=== PATIENT | male | born 1985 ===

== ENCOUNTER 2018-03-28 00:28 | Emergency (ER) | payer SELFPAY ==
[2018-03-28 02:03] VITALS: BP 134/79
[2018-03-28] MEDS ORDERED: MOTRIN PO ONE (02:04)
--- NOTE | 2018-03-28 02:40 | XRay Report ---
FINAL REPORT EXAM: XR HAND 2V LT HISTORY: Left middle finger pain TECHNIQUE: Two views of the left hand: AP and lateral projections. PRIORS: None. FINDINGS: There is no radiographic evidence of acute fracture or dislocation. There is soft tissue swelling about the distal phalanx middle finger at the dorsal margin near the nail bed. No subjacent osseous erosive changes are identified. Probable misregistration artifact is noted about the radial margin of the proximal phalanx middle finger. No radiopaque foreign body. IMPRESSION: Soft tissue swelling of the middle finger distal phalanx, no acute osseous abnormality identified.
[2018-03-28] MEDS ORDERED: TYLENOL PO ONE (04:46)
[2018-03-28] MEDS ORDERED: TYLENOL ONE (04:49)
--- NOTE | 2018-03-28 06:13 | Emergency Department Report ---
Upper Extremity - HPI Chief Complaint: Extremity Injury, Lower Stated Complaint: LT HAND INDEX FINGER SWELLING WITH PAIN Time Seen by Provider: 03/28/18 05:25 Upper Extremity: Left Middle Finger Occurred When: 3 Days Mechanism: Crush Severity: moderate Symptoms: Yes Pain with Movement, Yes Limited Range of Movement, Yes Swelling, Yes Bruising/Ecchymosis, No Deformity, No Numbness, No Weakness, No Laceration or Abrasion Other History: Subungual hematoma ED Review of Systems ROS: Stated complaint: LT HAND INDEX FINGER SWELLING WITH PAIN Other details as noted in HPI Constitutional: denies: chills, fever Eyes: denies: eye pain, eye discharge, vision change ENT: denies: ear pain, throat pain Respiratory: denies: cough, shortness of breath, wheezing Cardiovascular: denies: chest pain, palpitations Endocrine: no symptoms reported Gastrointestinal: denies: abdominal pain, nausea, diarrhea Genitourinary: denies: urgency, dysuria Musculoskeletal: myalgia (left subungual hematoma ). denies: back pain, joint swelling, arthralgia Skin: denies: rash, lesions Neurological: denies: headache, weakness, paresthesias Psychiatric: denies: anxiety, depression Hematological/Lymphatic: denies: easy bleeding, easy bruising ED Past Medical Hx - Past Medical History Hx Arthritis: Yes - Surgical History Past Surgical History?: No - Social History Smoking Status: Current Every Day Smoker Substance Use Type: None - Medications Home Medications: Home Medications Medication Instructions Recorded Confirmed Last Taken Type Cephalexin [Keflex] 500 mg PO TID #30 capsule 03/28/18 Unknown Rx traMADol [Ultram] 50 mg PO Q6HR PRN #15 tablet 03/28/18 Unknown Rx Upper Extremity Exam - Exam General: Vital signs noted. No distress. Alert and acting appropriately. Head and Torso: No HEENT Abnormality, No Neck Tenderness, No Chest/Lungs Abnormality, No Abdominal Tenderness, No Back Tenderness Shoulder Exam: Yes Normal Range of Motion in Shoulder, No Shoulder Tenderness, No Clavicle Tenderness, No Shoulder Deformity, No AC Joint Tenderness Arm Exam: No Arm/Humerus Tenderness, No Arm Deformity Elbow: No Elbow Tenderness, No Normal Range of Motion in Elbow, No Elbow Deformity Forearm: No Forearm Tenderness, No Forearm Deformity, No Pain with Pronation, No Pain with Supination Wrist: No Wrist Tenderness, No Wrist Deformity, No Snuffbox Tenderness, No Pain with Axial Thumb Compression Hand: Yes Hand Tenderness, Yes Digit Tenderness, Yes Normal ROM in Digit(s), No Hand Deformity, No Digit(s) Deformity, No Tendon Dysfunction CMS Exam: Yes Normal Distal Pulses, Yes Normal Capillary Refill, Yes Normal Distal Sensation, No Broken Skin Hand L/R Back: 1 - Left middle finger subungual hematoma ED Course Vital Signs 03/28/18 01:55 Temperature 98 F Pulse Rate 72 Respiratory 16 Rate Blood Pressure 134/79 O2 Sat by Pulse 100 Oximetry - I & D Left Distal Dorsal Finger Type of Procedure: Simple Site: left index finger subungual hematoma Blade Size: caudery I & D Procedure: betadine prep Progress: Patient presents with a left middle finger subungual hematoma pain swelling and erythema very clean Betadine solution a digital block performed with 1% lidocaine plain for anesthesia achieved with 3 mL coronary used to left middle fingernail multiple passes hematoma released pain pressure related reduced bleeding controlled sterile dressing applied patient given wound care instructions and verbalizes understanding and agreement with saying patient tolerated procedure with minimal distress ED Medical Decision Making - Radiology Data Radiology results: report reviewed, image reviewed no fracture mild soft tissue swelling - Medical Decision Making Subungual hematoma relieved see procedure note all bleeding controlled sterile dressing applied patient given wound care instructions verbalized understanding and agreement with same with DC'd on Keflex and Ultram when necessary pain patient will follow-up at [facility] in 2-3 days return to ED if symptoms worsen patient verbalizes understanding of same patient with DC'd to home in stable condition at this time Critical care attestation.: If time is entered above; I have spent that time in minutes in the direct care of this critically ill patient, excluding procedure time. ED Disposition Clinical Impression: Subungual hematoma of digit of hand Qualifiers: Encounter type: initial encounter Qualified Code(s): S60.10XA - Contusion of unspecified finger with damage to nail, initial encounter Disposition: DC-01 TO HOME OR SELFCARE Is pt being admited?: No Does the pt Need Aspirin: No Condition: Good Instructions: Subungual Hematoma (ED) Prescriptions: Cephalexin [Keflex] 500 mg PO TID #30 capsule traMADol [Ultram] 50 mg PO Q6HR PRN #15 tablet PRN Reason: Pain Referrals: PRIMARY CARE, [Primary Care Provider] - 3-5 Days Forms: Work/School Release Form(ED) Time of Disposition: 06:16
== END 2018-03-28 06:20 | disposition home or self-care (01) ==
LOC: ED 00:28
DX: S60.122A Contusion of left index finger with damage to nail, initial encounter (principal); M19.90 Unspecified osteoarthritis, unspecified site; F17.200 Nicotine dependence, unspecified, uncomplicated; X58.XXXA Exposure to other specified factors, initial encounter; Y93.89 Activity, other specified; Y92.89 Other specified places as the place of occurrence of the external cause; Y99.8 Other external cause status
CPT/HCPCS: 99283